=== PATIENT | female | born 1960 | race Caucasian/White ===

== ENCOUNTER 2018-07-15 05:22 | Observation (INO) | payer MEDICAID, MEDICARE ==
[~2018-07-15] VITALS: Ht 166.4 cm; Wt 72.6 kg
--- NOTE | 2018-07-15 05:42 | NUR ---
PT STATES RECTAL BLEEDING STARTING 0300 THIS AM. STATES "ITS BEEN LEAKING OUT OF ME SOMETIMES AND I FEEL SOME PRESSURE DOWN IN MY BOTTOM." DENIES ANY HYPOTENSIVE SYMPTOMS. VSS. CALL LIGHT WITHIN REACH.
[2018-07-15] MEDS ORDERED: PANTOPRAZOLE 40 MG IV ONE (05:59)
[2018-07-15] MEDS ORDERED: SODIUM CHLORIDE FLUSH 10ML SYR IVF ONE (06:00)
[2018-07-15] MEDS ORDERED: PANTOPRAZOLE 40 MG IV IVPush ONE (06:00)
--- NOTE | 2018-07-15 06:10 | NUR ---
PT INFORMED ON NEED OF 2 LARGE BORE IV'S. PT STATES, "ILL HAVE JUST THE ONE THANK YOU." PT EDUCATED ON NEED, STILL REFUSING. NOTIFIED. NO NEW ORDERS.
[2018-07-15 06:30] LABS: BASOPHILS # (AUTO) 0.06 x10^3/uL (0-0.1); BASOPHILS % (AUTO) 1 % (0-1); EOSINOPHILS % (AUTO) 2 % (1-7); LYMPHOCYTES # (AUTO) 3.07 x10^3/uL (1-3.4); LYMPHOCYTES % (AUTO) 30 % (22-44); MD NO; MEAN CORPUSCULAR HEMOGLOBIN 30.9 pg (27.0-34.8); MEAN CORPUSCULAR HGB CONC 33.6 g/dL (32.4-35.8); MEAN CORPUSCULAR VOLUME 92.1 fL (80-100); MEAN PLATELET VOLUME 8.2 fL (7.4-10.4); MONOCYTES % (AUTO) 6 % (2-9); NEUTROPHILS # (AUTO) 6.46 x10^3/uL (1.8-6.8); NEUTROPHILS % (AUTO) 62 % (42-75); PLATELET COUNT 281 x10^3/uL (130-400); RED BLOOD COUNT 4.36 x10^6/uL (3.82-5.3); RED CELL DISTRIBUTION WIDTH 13.1 % (9.6-15.2)
[2018-07-15 06:41] LABS: INTERNATIONAL NORMALIZED RATIO 0.95 (0.93-1.1); PROTHROMBIN TIME 10.1 Seconds (9.6-11.5)
[2018-07-15 06:42] LABS: ALBUMIN 3.6 g/dL (3.4-5.0); ANION GAP 8 mmol/L (5-15); CALCIUM 8.6 mg/dL (8.5-10.1); CHLORIDE 113 mmol/L (98-107); CREATININE 0.77 mg/dL (0.55-1.02)
--- NOTE | 2018-07-15 07:04 | NUR ---
PT REPORT TO MARYCHUY DAS.
--- NOTE | 2018-07-15 08:11 | NUR ---
attempt to call report. rn with pt and will call back.
[2018-07-15 08:30] VITALS: BP 123/78
[2018-07-15] MEDS ORDERED: ONDANSETRON 2MG/ML, 2ML IV PRN (09:00)
[2018-07-15] MEDS ORDERED: DOCUSATE 100 MG CAPSULE PO PRN (09:00)
[2018-07-15] MEDS ORDERED: ALPR1TAB2 PO (09:13)
[2018-07-15] MEDS ORDERED: GOLYTELY 4,000ML ORAL.SOL ONE (09:54)
[2018-07-15] MEDS: SODIUM CHLORIDE 0.9% 1,000 ML IV SCH (10:39)
[2018-07-15] MEDS ORDERED: ALPRazolam 1MG TABLET PO PRN (12:00)
[2018-07-15] MEDS ORDERED: GOLYTELY 4,000ML ORAL.SOL PO ONE (12:00)
[2018-07-15 13:44] VITALS: BP 110/78
[2018-07-15] MEDS: ACETAMINOPHEN 325 MG TABLET PO PRN (19:54)
[2018-07-15 20:04] VITALS: BP 114/77
[2018-07-16] MEDS: SODIUM CHLORIDE 0.9% 1,000 ML IV SCH (00:29)
[2018-07-16 01:34] LABS: BASOPHILS # (AUTO) 0.04 x10^3/uL (0-0.1); BASOPHILS % (AUTO) 1 % (0-1); EOSINOPHILS # (AUTO) 0.18 x10^3/uL (0-0.4); EOSINOPHILS % (AUTO) 3 % (1-7); LYMPHOCYTES # (AUTO) 2.77 x10^3/uL (1-3.4); LYMPHOCYTES % (AUTO) 47 % (22-44); MD NO; MEAN CORPUSCULAR HEMOGLOBIN 31.8 pg (27.0-34.8); MEAN CORPUSCULAR HGB CONC 34.5 g/dL (32.4-35.8); MEAN CORPUSCULAR VOLUME 92.3 fL (80-100); MEAN PLATELET VOLUME 8.4 fL (7.4-10.4); MONOCYTES # (AUTO) 0.37 x10^3/uL (0.2-0.8); MONOCYTES % (AUTO) 6 % (2-9); NEUTROPHILS % (AUTO) 43 % (42-75); PLATELET COUNT 209 x10^3/uL (130-400); RED BLOOD COUNT 3.49 x10^6/uL (3.82-5.3); RED CELL DISTRIBUTION WIDTH 13.5 % (9.6-15.2)
[2018-07-16 01:40] LABS: ANION GAP 5 mmol/L (5-15); CALCIUM 7.8 mg/dL (8.5-10.1); CHLORIDE 111 mmol/L (98-107); CREATININE 0.65 mg/dL (0.55-1.02)
[2018-07-16 02:34] VITALS: BP 106/71
[2018-07-16 06:31] VITALS: BP 111/77
[2018-07-16] MEDS: ACETAMINOPHEN 325 MG TABLET PO PRN (08:46)
[2018-07-16] MEDS ORDERED: PANTOPRAZOLE 40 MG IV IVPush SCH (10:00)
[2018-07-16] MEDS ORDERED: PROPOFOL 10 MG/ML, 20ML ONE (11:57)
[2018-07-16] MEDS ORDERED: MIDAZOLAM 1 MG/ML, 2ML ONE (11:57)
[2018-07-16] MEDS ORDERED: ONDANSETRON 2MG/ML, 2ML IV PRN (12:30)
[2018-07-16] MEDS ORDERED: FENTANYL PF 100 MCG/2ML IV PRN (12:30)
[2018-07-16 13:19] VITALS: BP 120/65
[2018-07-16] MEDS ORDERED: OMEP-110 PO (15:49)
[2018-07-16] MEDS ORDERED: OMEPRAZOLE 20 MG CAPSULE.DR PO SCH (21:00)
== END 2018-07-16 17:24 | disposition home or self-care (01) ==
LOC: ED 07:38 → EDIP 07:39 → INTOOBSV 07:39 → 4NOR 08:33
PROVIDERS: ADMIT Hospitalist; ATTEND Internal Medicine
DX: K57.90 Diverticulosis of intestine, part unspecified, without perforation or abscess without bleeding (principal); K92.1 Melena; F41.9 Anxiety disorder, unspecified; D64.9 Anemia, unspecified; Z90.49 Acquired absence of other specified parts of digestive tract; K57.91 Diverticulosis of intestine, part unspecified, without perforation or abscess with bleeding; K63.5 Polyp of colon; F17.200 Nicotine dependence, unspecified, uncomplicated; K59.00 Constipation, unspecified; K64.0 First degree hemorrhoids; Z85.038 Personal history of other malignant neoplasm of large intestine; Z92.21 Personal history of antineoplastic chemotherapy; Z88.0 Allergy status to penicillin
CPT/HCPCS: 36415; 43239; 80048; 82040; 85014; 85018; 85025; 85610; 85730; 86850; 86900; 88305; 96374; 96375; 96376; 99285; C9113; G0378; J2250; J2405; J2704; J7030

== ENCOUNTER 2018-08-27 10:24 | Outpatient (CLI) | payer MEDICARE ==
[~2018-08-27 10:24] MED LIST: ALPR1TAB2 PO; OMEP-110 PO
[2018-08-27] MEDS ORDERED: ASPI-496 PO (11:31)
[2018-08-27] MEDS ORDERED: ENAL5TAB PO (11:31)
[2018-08-27] MEDS ORDERED: BUPR-86 PO (11:31)
== END 2018-08-27 23:59 | disposition home or self-care (01) ==
LOC: STAR 10:24
PROVIDERS: ATTEND Internal Medicine Gastroenterology
DX: Z02.9 Encounter for administrative examinations, unspecified (principal)

== ENCOUNTER 2018-09-10 10:53 | Day surgery (SDC) | payer MEDICARE ==
[~2018-09-10] VITALS: Ht 165.1 cm; Wt 71.7 kg
[~2018-09-10 10:53] MED LIST changes: +ASPI-496 PO; +BUPR-86 PO; +ENAL5TAB PO
[2018-09-10] MEDS ORDERED: LACTATED RINGERS 1,000 ML IV SCH (11:17)
[2018-09-10 11:46] VITALS: BP 119/83
[2018-09-10] MEDS ORDERED: CHLORHEXIDINE 15 ML UDC ONE (14:28)
[2018-09-10] MEDS ORDERED: MIDAZOLAM 1 MG/ML, 2ML ONE (14:30)
[2018-09-10] MEDS ORDERED: PROPOFOL 10 MG/ML, 20ML ONE (14:37)
[2018-09-10] MEDS ORDERED: CIPROFLOXACIN/PMX 400MG/200ML 200 ML ONE (14:54)
[2018-09-10] MEDS ORDERED: LORazepam 2 MG/ML, 1ML IVPush PRN (15:00)
[2018-09-10] MEDS ORDERED: FENTANYL PF 100 MCG/2ML IV PRN (15:00)
[2018-09-10] MEDS ORDERED: ACETAMINOPHEN 325 MG TABLET PO PRN (15:00)
== END 2018-09-10 17:00 | disposition home or self-care (01) ==
LOC: OUT 10:53
PROVIDERS: ATTEND Internal Medicine Gastroenterology
DX: K29.50 Unspecified chronic gastritis without bleeding (principal); F41.9 Anxiety disorder, unspecified; I10 Essential (primary) hypertension; Z88.0 Allergy status to penicillin
CPT/HCPCS: 43238; 88172; 88173; 88177; 88305; J0744; J2250; J2704; J7120

== ENCOUNTER → 2018-09-18 | Outpatient (CLI) | payer MEDICARE | END | disposition home or self-care (01) | LOC: CFH 08:04 | PROVIDERS: ATTEND Family Medicine | DX: Z12.31 Encounter for screening mammogram for malignant neoplasm of breast (principal) | CPT/HCPCS: 77067 ==

== ENCOUNTER 2018-11-27 08:38 | Outpatient (CLI) | payer MEDICARE ==
[~2018-11-27 08:38] MED LIST changes: +ATOR20TA37 PO; +CALC-545 PO; +CHOL3000 PO; +CIPR500T3 PO; +LISI-167 PO; +METR-90 PO; +VARE0.5T PO
== END 2018-11-27 23:59 | disposition home or self-care (01) ==
LOC: CFH 08:38
PROVIDERS: ATTEND Internal Medicine Cardiovascular Disease
DX: R06.02 Shortness of breath (principal); R07.2 Precordial pain; R01.1 Cardiac murmur, unspecified; I70.213 Atherosclerosis of native arteries of extremities with intermittent claudication, bilateral legs
CPT/HCPCS: 78452; 93017; A9502